=== PATIENT | female | born 1990 | race Caucasian/White ===

== ENCOUNTER 2019-10-24 21:15 | Emergency (ER) | payer SELFPAY ==
[2019-10-24 21:24] VITALS: BP 140/87; PULSE 63; RESP 14; TEMP 36.6; O2SAT 99; BMI 24.2
--- NOTE | 2019-10-24 21:31 | XRR_ITS ---
PROCEDURE INFORMATION: Exam: XR Right Elbow Exam date and time: 10/24/2019 9:32 PM Age: 29 years old Clinical indication: Injury or trauma; Fall; Initial encounter; Blunt trauma (contusions or hematomas; Elbow; Right TECHNIQUE: Imaging protocol: XR Right elbow. Views: 3 or more views. COMPARISON: No relevant prior studies available. FINDINGS: Bones/joints: There is no acute fracture or dislocation. If symptoms persist, follow-up imaging in several days may be useful to exclude an occult fracture. No other significant acute bone or joint abnormality. Soft tissues: No definite evidence for elbow joint effusion. XR/XR elbow RT min 3V* [id number] IMPRESSION: No acute fracture or dislocation.
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
== END 2019-10-24 22:20 | disposition home or self-care (01) ==
PROVIDERS: Emergency Provider Nurse Practitioner Family
DX: S40.021A Contusion of right upper arm, initial encounter (principal); W22.09XA Striking against other stationary object, initial encounter
CPT/HCPCS: 12345; 73080; 99281; 99283